=== PATIENT | male | born 1950 | race Caucasian/White ===

== ENCOUNTER 2017-07-02 23:04 | Emergency (ER) | payer OTHER ==
[~2017-07-02] VITALS: Ht 175.3 cm; Wt 68.0 kg
[2017-07-03 01:09] VITALS: BP 143/80
[2017-07-03] MEDS ORDERED: ACETAMINOPHEN 500 MG TAB PO ONE (01:15)
== END 2017-07-03 02:47 | disposition home or self-care (01) ==
LOC: ER 23:06
DX: B34.9 Viral infection, unspecified (principal)
CPT/HCPCS: 87804

== ENCOUNTER 2024-12-09 07:06 | Outpatient (CLI) | payer MEDICARE ==
[~2024-12-09] VITALS: Ht 172.7 cm; Wt 70.3 kg
[2024-12-09] MEDS: REGADENOSON 0.4 MG/5 ML SYRG IV ONE ×2 (08:50→08:57)
--- NOTE | 2024-12-12 13:48 | DVHSR ---
APPROVED REPORT Exam: Nuclear Stress Test BMI: 0 Stress Test Details Stress Test: Pharmacologic stress testing performed using 0.4 mg of regadenoson per 5 mL given IV ov er 10 seconds. HR Resting HR: 57 bpmMax Heart Rate (APMHR): 147.712702 bpm Max HR Achieved: 89 bpmTarget HR (85% APMHR): 124.835853 bpm % of APMHR: 60.54 Recovery HR: 79 bpm BP Resting BP: 132/69 mmHg Recovery BP: 130/69 mmHg ECG Resting ECG: Sinus Bradycardia Clinical Reason for Termination: Completed protocol Nurse Comments Recieved pt. from [facility]. A/Ox4 on RA. Connected to school bus monitor, VS stable. PIV flushes well. Re viewed POC. Pt. verbalized understanding of procedure including risks and side effects, agrees for st ress testing. Lexiscan stress test performed per protocol. [facility] tech administered Cardiolite. Pt. tolerated well . Pt. stable, no change on exam. VS returned to baseline. Transferred to [facility] via wheelchair w/ te ch. Stress ECG Conclusion lvef 65% fixed inferior wall defec t noted no major ischemia noted NM EXAM: Myocardial Perfusion REST/STRESS Imaging Protocol: Rest Tc-99m/Stress Tc-99m 2 days Resting Data Rest SPECT myocardial perfusion imaging was performed in supine position 60 minutes following the int ravenous injection of 12.3 mCi of Tc-99m Sestamibi. Time of rest injection: 0235 Time of rest imagin Administration Route: IV Administration Site: Left AC Pharmacologic Stress Pharmacologic stress test was performed by injecting Regadenoson 0.4 mg IV push followed by the intra venous injection of 28.4 mCi of Tc-99m Sestamibi. Time of stress injection: 0900 Time of stress imagin Administration Route: IV Administration Site: Left AC Gated Stress SPECT was performed 60 minutes after stress injection. The images were gated to evaluate regional wall motion and calculate left ventricular ejection fracti on. Nuclear Conclusion Nuclear Findings: negative for ischemia lvef 65% fixed inferior wall defec t noted no major ischemia noted
== END 2024-12-09 17:00 | disposition home or self-care (01) ==
LOC: XYW 07:06
PROVIDERS: ATTEND Specialist
DX: R00.1 Bradycardia, unspecified (principal); R94.31 Abnormal electrocardiogram [ECG] [EKG]; R01.1 Cardiac murmur, unspecified
CPT/HCPCS: 78452; 93017; A9500; J2785

== ENCOUNTER 2025-01-26 07:29 | Day surgery (SDC) | payer MEDICARE ==
[~2025-01-26] VITALS: Ht 172.7 cm; Wt 71.2 kg
[~2025-01-26 07:29] MED LIST: DOCU-94 PO
[2025-01-26] MEDS: fentaNYL CITRATE 100 MCG/2 ML VL IV ONE (08:45)
[2025-01-26] MEDS: LIDOCAINE VISCOUS 2% 15ML UD PO ONE (08:45)
[2025-01-26] MEDS: MIDAZOLAM HCL 2MG/2ML 2ml VIAL (1mg/ml) IV ONE (08:53)
[2025-01-26 09:01] VITALS: BP 131/76; PULSE 75; RESP 12; O2SAT 99
--- NOTE | 2025-01-26 09:09 | DVHOP2 ---
Operative Report Trans-Esophageal Echocardiogram PROCEDURE REPORT Date of Service: 01/26/2025 Turf Sales Person: Celi Guevara MD PROCEDURE PERFORMED: Transesophageal echocardiogram, conscious sedation administration and supervision, more than 15 minutes. Intra cardiac bubble study. PREOPERATIVE DIAGNOSES: r/o Valvular heart disease/MVP. DESCRIPTION OF PROCEDURE: The patient signed informed consent understanding risks, benefits and alternatives of the procedure, he wished to proceed. The p atient was given 15 mL of oral viscous lidocaine. He was placed in a left lateral decubitus position and conscious sedation was administered per laborer airport maintenance protocol (1 mg of Versed and 50 mcg of Fentanyl). I administered a bite block into his mouth and a CORBIN probe into the mid esophagus without any difficulties or complications. Multiple planar images were obtained. Bubble study was also performed. At the completion of procedure, CORBIN probe was removed and there were no immediate complications. Vitals signs were stable throughout the procedure. FINDINGS: 1. Left ventricle: LVEF was 70%. There was no gross wall motion abnormality seen. 2. Right ventricle: RV was normal sized with normal systolic function. 3. Left atrium: LA enlarged 4. Right atrium: RA was mildly enlarged. 5. Mitral valve: Moderate to severe Mitral valve prolapse (posterior leaflet) was seen. Leaflet was nearly flail. Moderate eccentric Mitral Regurgitation was seen. There was no stenosis. 6. Left atrial appendage: No evidence of thrombus. 7. Aortic valve: Trileaflet valve. No stenosis. No Aortic Insufficiency was seen. There was no vegetation 8. Pulmonic valve: Trivial pulmonic insufficiency. No significant stenosis. 9. Tricuspid valve: Mild tricuspid regurgitation. There was no vegetation 10. Interatrial septum: Negative color flow for right to left shunt was observed. Bubble study was performed: negative for shunt 11. Pericardium: No significant effusion. 12. Thoracic aorta: No significant plaquing. Moderate to severe Mitral valve prolapse with moderate Eccentric Mitral regurgitation. CELI GUEVARA MD Jan 26, 2025 09:09
[2025-01-26 09:16] VITALS: BP 119/62; PULSE 60; RESP 17; O2SAT 99
[2025-01-26 09:31] VITALS: BP 120/65; PULSE 60; RESP 12; O2SAT 92
[2025-01-26 09:46] VITALS: BP 117/66; PULSE 53; RESP 12; O2SAT 99
== END 2025-01-26 09:58 | disposition home or self-care (01) ==
LOC: CATH 07:29
PROVIDERS: ATTEND Internal Medicine Cardiovascular Disease
DX: I08.1 Rheumatic disorders of both mitral and tricuspid valves (principal)
CPT/HCPCS: 93312; J2250; J3010; 93325; 99152

== ENCOUNTER 2025-02-01 06:31 | Day surgery (SDC) | payer MEDICARE ==
[~2025-02-01] VITALS: Ht 172.7 cm; Wt 69.9 kg
[2025-02-01] MEDS: IODIXANOL 320MG/ML 100ML BTL IV ONE (07:30)
[2025-02-01] MEDS: HEPARIN IN NS 1000Units/500mL 1,500 ML ONE (07:30)
[2025-02-01] MEDS: VERAPAMIL 2.5MG/ML INJ 2ML VIAL IV ONE (08:10)
[2025-02-01] MEDS: MIDAZOLAM HCL 2MG/2ML 2ml VIAL (1mg/ml) ONE (08:10)
[2025-02-01] MEDS: fentaNYL CITRATE 100 MCG/2 ML VL ONE (08:10)
[2025-02-01] MEDS: HEPARIN SODIUM (PORCINE) 5000 UNITS/ML 1ML VIAL ONE (08:10)
[2025-02-01] MEDS: NITROGLYCERIN 50MG/250ML 250 ML IV ONE (08:11)
[2025-02-01] MEDS: LIDOCAINE 2%HCL (LOCAL ANESTH.) INJ 20ML MDV ONE (08:11)
[2025-02-01 09:16] VITALS: BP 126/65; PULSE 60; RESP 15; O2SAT 95
[2025-02-01 09:28] VITALS: BP 119/60; PULSE 58; RESP 12; O2SAT 94
--- NOTE | 2025-02-01 09:31 | DVHOP2 ---
Operative Report Procedures performed: Right and left heart catheterization and bilateral coronary angiogram Moderate sedation Diagnosis: Multivessel coronary artery disease Preserved left ventricular systolic function Normal right-sided pressures Known (CORBIN/echocardiographic) significant mitral valve prolapse Cardiac suggestions for management: Elective/outpatient referral to Cardiothoracic surgery for management of significant valvular disease/multivessel coronary artery disease (valve replacement/bypass surgery) Findings: PCW: 12/15/11 mm Hg PA: 27/5/15 mm Hg RV: 27/0/6 mm Hg RA: 6/3/2 mm Hg Cardiac output: 4.83 L/min Cardiac index: 2.62 L/min/M LV: 109/1/15 mm Hg Aorta: 105/50/73 mm Hg Left main: Left main was coming off the left sinus of Valsalva. It had 55-60% distal lesion. LAD: LAD was coming off the left main. Mid LAD had sequential 80% lesions. There were two medium-sized diagonals (D1 and D2). D1 had 90% ostial lesion. LCX: There was 99% ostial LCX disease. Ramus intermedius: There was a vessel which could be called ramus intermedius or very high obtuse marginal. It was a large caliber vessel. It did have 95% proximal lesion. RCA: RCA was coming off the right sinus of Valsalva. It was a dominant vessel and provided RPDA/RPLS. RCA had 75% lesion in mid RCA. Other portions of RCA revealed mild disease. Presentation: Patient is a 75-year-old gentleman who originally presented to the office for risk stratification prior to inguinal hernia surgery. While being evaluated, the patient was found to have significant cardiac murmur. Echocardiography revealed significant mitral valve prolapse and regurgitation. CORBIN was performed which also revealed ejection fraction of 70%, [id number] carmen mitral valve prolapse (the leaflet was nearly flail) and also eccentric mitral regurgitation. Patient was sent for cardiac catheterization prior to valve management. Procedure in detail: After obtaining informed consent, the patient was brought to microbiological lab technician. He was prepped and draped in sterile fashion. 1 mg of Versed and 50 mcg of fentanyl were used for moderate sedation. Previously placed access in the right antecubital area was used to access the venous system and perform right heart catheterization. Over a wire, the right antecubital access was exchanged with a six Norwegian sheath. Using Seldinger technique, the right radial artery was accessed and a six Norwegian slender sheath was inserted into it. 2.5 mg of verapamil and 100 mcg of nitroglycerin were given as a cocktail into right radial sheath. 3500 units of heparin was given peripherally. Under the guidance of the run-through wire, a six Norwegian Linwood-Yehuda catheter was taken into the right-sided chambers of the heart. Pressures were obtained and cardiac output (thermodilution technique) was calculated. A five Norwegian tiger catheter was used to perform bilateral coronary angiography. A six Norwegian pigtail catheter was used to perform left heart catheterization. We did recognize multivessel coronary artery disease. Total bleeding was less than 5 mL. There was no dissection/hematoma/perforation. Patient tolerated the procedure with no complication. Right antecubital access site was managed by manual pressure. Right radial artery access site was managed by TR band. Fluoroscopy time: 8.1 minutes contrast: 80 mL of Visipaque CELI GUEVARA MD Feb 01, 2025 09:31
[2025-02-01 09:42] VITALS: BP 119/62; PULSE 54; RESP 12; O2SAT 93
[2025-02-01 09:57] VITALS: PULSE 60; RESP 16; O2SAT 93
[2025-02-01 10:42] VITALS: BP 123/52; PULSE 55; RESP 12; O2SAT 94
[2025-02-01 11:12] VITALS: BP 122/57; PULSE 59; RESP 14; O2SAT 95
== END 2025-02-01 11:55 | disposition home or self-care (01) ==
LOC: CATH 06:31
PROVIDERS: ATTEND Internal Medicine Cardiovascular Disease
DX: I25.10 Atherosclerotic heart disease of native coronary artery without angina pectoris (principal); I34.0 Nonrheumatic mitral (valve) insufficiency; I34.1 Nonrheumatic mitral (valve) prolapse; Z95.2 Presence of prosthetic heart valve
CPT/HCPCS: 93460; C1769; C1894; J1644; J2250; J3010; J7030; Q9967; 99152